=== PATIENT | male | born 1980 | race Caucasian/White ===

== ENCOUNTER 2019-09-20 11:37 | Day surgery (SDC) | payer OTHER ==
[2019-09-20] VITALS (9 sets, daily range): BP systolic 110–143; BP diastolic 66–100
[~2019-09-20] VITALS: Ht 180.3 cm; Wt 109.2 kg
[2019-09-20] MEDS ORDERED: diphenhydrAMINE 25mg capsule PO PRN (11:55)
[2019-09-20] MEDS ORDERED: normal saline 1,000 ML IV SCH (11:55)
[2019-09-20] MEDS ORDERED: OLME1TAB86 PO (12:09)
[2019-09-20] MEDS ORDERED: HYDR-3686 PO (12:09)
[2019-09-20] MEDS ORDERED: METF500T20 PO (12:09)
[2019-09-20] MEDS ORDERED: CLON0.1T PO (12:09)
[2019-09-20] MEDS ORDERED: SERT100T10 PO (12:09)
[2019-09-20] MEDS ORDERED: PROP10TA10 PO (12:09)
[2019-09-20] MEDS ORDERED: LIDOcaine/PRILOcaine 5gm cream TP ONE (12:20)
[2019-09-20 12:30] LABS: BASOPHILS % (AUTO) 0.6 % (0-1); EOSINOPHILS # (AUTO) 0.1 X10'3 (0-0.9); EOSINOPHILS % (AUTO) 2.3 % (0-6); HEMATOCRIT 40.1 % (42.0-52.0); HEMOGLOBIN 13.7 g/dl (14.0-17.9); LYMPHOCYTES # (AUTO) 1.8 X10'3 (1.1-4.8); LYMPHOCYTES % (AUTO) 31.8 % (21-51); MEAN CORPUSCULAR HEMOGLOBIN 29.8 PG (27.0-31.0); MEAN CORPUSCULAR HGB CONC 34.2 g/dL (33.0-36.5); MEAN CORPUSCULAR VOLUME 87.2 FL (78-98); MEAN PLATELET VOLUME 10.2 FL (7.4-10.4); MONOCYTES # (AUTO) 0.3 X10'3 (0-0.9); NEUTROPHILS # (AUTO) 3.3 X10'3 (1.8-7.7); NEUTROPHILS % (AUTO) 59.3 % (42-75); PLATELET COUNT 165 X10'3 (140-440); RED BLOOD COUNT 4.59 X10'6 (4.70-6.10); RED CELL DISTRIBUTION WIDTH 12.8 % (11.5-14.5); WHITE BLOOD COUNT 5.6 X10'3 (4.5-11.0)
[2019-09-20 12:33] LABS: ALBUMIN 4.3 G/DL (3.4-5.0); ANION GAP 10 (8-16); BLOOD UREA NITROGEN 20 MG/DL (7-18); BUN/CREATININE RATIO 21.5 (5.4-32.0); CALCIUM 9.1 MG/DL (8.5-10.1); CHLORIDE 103 MMOL/L (99-107); CREATININE 0.93 MG/DL (0.60-1.10); GLUCOSE 154 MG/DL (70-104); MAGNESIUM 1.6 MG/DL (1.5-2.4); POTASSIUM 3.6 MMOL/L (3.5-5.1); SODIUM 140 MMOL/L (135-145); TOTAL CARBON DIOXIDE 27.4 MMOL/L (24-32); eGFR 90 ML/MIN
[2019-09-20] MEDS ORDERED: proCHLORperazine 10 MG/2 ml inj ONE (13:48)
[2019-09-20] MEDS ORDERED: midazolam 2 mg/2 ml injection ONE (13:48)
[2019-09-20] MEDS ORDERED: LIDOcaine 1% (10mg/ml)w/preservative injection 20ml MDV ONE (13:49)
[2019-09-20] MEDS ORDERED: iohexol 350 MG/ML 50ML vial IV ONE (13:49)
[2019-09-20] MEDS ORDERED: fentaNYL/PF 50MCG/1 ML 2ML syringe ONE (13:49)
[2019-09-20] MEDS ORDERED: iohexol 350MG/ML 100ml bottle IV ONE (13:49)
[2019-09-20] MEDS ORDERED: nitroGLYCERIN-Tridil 50MG/D5W 250 ML IV ONE (13:55)
[2019-09-20] MEDS ORDERED: verapamil 2.5 mg/ml inj IV ONE (13:56)
[2019-09-20] MEDS ORDERED: heparin 1,000unit/ml 10ml vial 10 ML ONE (13:56)
== END 2019-09-20 18:05 | disposition home or self-care (01) ==
LOC: SSTAY O 11:37 → MED 3N 11:38 → SSTAY O 18:05
PROVIDERS: ATTEND Internal Medicine Cardiovascular Disease
DX: R94.39 Abnormal result of other cardiovascular function study (principal); R07.89 Other chest pain; I20.9 Angina pectoris, unspecified; Z79.01 Long term (current) use of anticoagulants; Z88.5 Allergy status to narcotic agent; I10 Essential (primary) hypertension; E11.9 Type 2 diabetes mellitus without complications; G47.30 Sleep apnea, unspecified; Z79.899 Other long term (current) drug therapy; Z79.84 Long term (current) use of oral hypoglycemic drugs
CPT/HCPCS: 36415; 80048; 83735; 85025; 85610; 93005; 93458; 99152; 99153; C1769; C1894; J0780; J1644; J2001; J2250; J3010; J7030; Q0163; Q9967; A4620; A4663; A5120; A6258; GO378; J3490